=== PATIENT | male | born 1970 | race Hispanic/Latino ===

== ENCOUNTER 2022-06-30 06:35 | Observation (INO) | payer OTHER ==
[~2022-06-30] VITALS: Ht 177.8 cm; Wt 117.0 kg
[2022-06-30 07:37] LABS: BASOPHILS % (AUTO) 0.4 % (0.0-5.0); EOSINOPHILS % (AUTO) 0.8 % (0.0-8.0); HEMATOCRIT 45.3 % (42-54); MEAN CORPUSCULAR HEMOGLOBIN 29.9 pg (27.0-33.0); MEAN CORPUSCULAR HGB CONC 35.1 g/dL (32.0-36.0); MEAN CORPUSCULAR VOLUME 85.2 fL (79-99); MONOCYTES % (AUTO) 6.6 % (3.0-13.0); PLATELET COUNT (AUTO) 227 K/uL (130-400); RED BLOOD CELL COUNT(AUTO) 5.32 MIL/uL (4.50-6.20); RED CELL DISTRIBUTION WIDTH 11.8 % (11.0-15.5); WHITE BLOOD COUNT (AUTO) 12.8 K/uL (4.8-10.8)
[2022-06-30 07:44] LABS: APPEARANCE,URINE CLEAR (CLEAR); BILIRUBIN,URINE NEGATIVE (NEGATIVE); COLOR,URINE YELLOW (YELLOW); GLUCOSE, URINE (UA) >=1000 mg/dL (NEGATIVE); KETONES,URINE 40 mg/dL (NEGATIVE); LEUKOCYTE ESTERASE ,URINE NEGATIVE Leu/uL (NEGATIVE); NITRATE,URINE NEGATIVE (NEGATIVE); OCCULT BLOOD,URINE NEGATIVE (NEGATIVE); PROTEIN,URINE NEGATIVE (NEGATIVE); UROBILINOGEN,URINE 0.2 mg/dL (0.2-1.0)
[2022-06-30 07:47] LABS: CREATININE 0.7 mg/dL (0.5-1.5); POTASSIUM 4.1 mmol/L (3.5-5.1)
[2022-06-30 07:52] LABS: ALBUMIN 3.9 g/dL (3.5-5.0); TOTAL PROTEIN, SERUM 7.4 g/dL (6.0-8.3)
[2022-06-30 07:54] LABS: RBC,URINE None Seen /HPF (0-1); WBC,URINE None Seen /HPF (0-1)
[2022-06-30 07:55] LABS: BACTERIA,URINE None Seen /HPF (None Seen); SQUAMOUS EPITHELIAL CELL,UR 0-2 /HPF (0-2)
[2022-06-30] MEDS ORDERED: 0.9%NACL 1000ML 1,000 ML IV ONE (09:00)
[2022-06-30] MEDS ORDERED: ZOSYN 3.375GM +NS 50ML IVPB ONE (09:00)
[2022-06-30] MEDS ORDERED: MORPHINE 4 MG SYG IVP ONE ×2 (09:00→13:00)
[2022-06-30] MEDS ORDERED: ONDANSETRON 4MG INJ IVP ONE (09:00)
[2022-06-30] MEDS ORDERED: ONDANSETRON 4MG INJ IVP PRN (13:00)
[2022-06-30] MEDS ORDERED: MORPHINE 2 MG SYG IVP PRN (13:00)
[2022-06-30] MEDS ORDERED: 0.9%NACL 50ML IV SCH (13:00)
[2022-06-30] MEDS ORDERED: HYDRALAZINE 20MG/ML VIAL IV PRN (13:00)
[2022-06-30] MEDS ORDERED: POTASSIUM CHLORIDE 20MEQ/100ML 100 ML IV PRN (13:00)
[2022-06-30] MEDS ORDERED: DEXTROSE 50%-WATER 50 ML DISP.SYRIN IV PRN (13:00)
[2022-06-30] MEDS ORDERED: MAGNESIUM 2GM PREMIX 50ML 50 ML IV PRN (13:00)
[2022-06-30] MEDS ORDERED: GLUCAGON 1MG KIT 1 MG ML IM PRN (13:00)
[2022-06-30] MEDS ORDERED: ACETAMINOPHEN 325 MG SUPPOSITORY RC PRN (13:00)
[2022-06-30] MEDS ORDERED: LIDOCAINE HCL-MPF 1% 2ML VIAL IV PRN (13:00)
[2022-06-30] MEDS ORDERED: ZOSYN 3.375GM +NS 50ML IVPB SCH (13:00)
[2022-06-30] MEDS ORDERED: EMPA10TA PO (14:32)
[2022-06-30] MEDS ORDERED: LISI10TA24 PO (14:32)
[2022-06-30] MEDS ORDERED: ATOR10 PO (14:32)
[2022-06-30] MEDS ORDERED: METF-444 PO (14:32)
[2022-06-30] MEDS: INSULIN HUMULIN R 100 UNIT/ML 3ML SQ SCH ×2 (16:28→20:43)
[2022-06-30] MEDS: ZOSYN 3.375GM +NS 50ML IVPB SCH (16:32)
[2022-06-30 18:46] VITALS: BP 134/74
[2022-07-01] VITALS: BP 132/70
[2022-07-01] MEDS: ZOSYN 3.375GM +NS 50ML IVPB SCH ×2 (01:21→09:18)
[2022-07-01 04:00] VITALS: BP 117/73
[2022-07-01 05:35] LABS: BASOPHILS % (AUTO) 0.6 % (0.0-5.0); EOSINOPHILS % (AUTO) 1.4 % (0.0-8.0); HEMATOCRIT 43.5 % (42-54); MEAN CORPUSCULAR HGB CONC 34.3 g/dL (32.0-36.0); MEAN CORPUSCULAR VOLUME 87.7 fL (79-99); MONOCYTES % (AUTO) 7.6 % (3.0-13.0); NEUTROPHILS % (AUTO) 66.1 % (40.0-77.0); PLATELET COUNT (AUTO) 211 K/uL (130-400); RED BLOOD CELL COUNT(AUTO) 4.96 MIL/uL (4.50-6.20); RED CELL DISTRIBUTION WIDTH 11.6 % (11.0-15.5); WHITE BLOOD COUNT (AUTO) 11.1 K/uL (4.8-10.8)
[2022-07-01] MEDS: INSULIN HUMULIN R 100 UNIT/ML 3ML SQ SCH ×3 (06:07→17:06)
[2022-07-01 06:17] LABS: ALBUMIN 3.4 g/dL (3.5-5.0); CREATININE 0.7 mg/dL (0.5-1.5); POTASSIUM 3.9 mmol/L (3.5-5.1)
[2022-07-01 08:00] VITALS: BP 120/68
[2022-07-01] MEDS ORDERED: LEVO-70 PO (11:24)
[2022-07-01] MEDS ORDERED: METR-172 PO (11:24)
[2022-07-01 12:00] VITALS: BP 123/74
[2022-07-01 16:00] VITALS: BP 136/80
== END 2022-07-01 19:05 | disposition home or self-care (01) ==
LOC: EDH 06:35 → INTOOBSV 12:11 → EDHIP 12:11 → 3BH 18:12
PROVIDERS: ADMIT Hospitalist; ATTEND Hospitalist
DX: K57.92 Diverticulitis of intestine, part unspecified, without perforation or abscess without bleeding (principal); E87.1 Hypo-osmolality and hyponatremia; E11.65 Type 2 diabetes mellitus with hyperglycemia; I10 Essential (primary) hypertension; E78.5 Hyperlipidemia, unspecified; E78.00 Pure hypercholesterolemia, unspecified; E86.0 Dehydration; H93.19 Tinnitus, unspecified ear; Z79.899 Other long term (current) drug therapy
CPT/HCPCS: 96376; 96365; 96366 ×2; 96375; 99285; 80053 ×2; 85025 ×2; 82948 ×5; 81001; 36415 ×2; 74176; 96372; J7030; J2405; J2270 ×2; J2543 ×4; G0378 ×8; J1815

== ENCOUNTER → 2023-06-09 | Outpatient (CLI) | payer OTHER ==
[~2023-06-09] MED LIST: ATOR10 PO; EMPA10TA PO; LEVO-70 PO; LISI10TA24 PO; METF-444 PO; METR-172 PO
== END | disposition home or self-care (01) ==
LOC: OIH 07:35
PROVIDERS: ATTEND Nurse Practitioner Family
DX: Z13.6 Encounter for screening for cardiovascular disorders (principal)
CPT/HCPCS: 75571